=== PATIENT | male | born 1990 | race Caucasian/White ===

== ENCOUNTER 2021-05-09 05:52 | Emergency (ER) | payer SELFPAY ==
[~2021-05-09] VITALS: Ht 175.3 cm; Wt 86.2 kg
--- NOTE | 2021-05-09 05:56 | NUR ---
PT AAOX4. BIBSELF C/O PAIN UPON URINATION AFTER USING A PUBLIC BATHROOM. PLACED IN BED 4 ON MONITOR AND PULSE OX. AWAITING ER MD FOR EVAL AND ORDERS.
--- NOTE | 2021-05-09 06:01 | NUR ---
URINE COLLECTED, SENT TO LAB.
[2021-05-09] MEDS ORDERED: CLOT12CR TP ×2 (06:17→06:18)
[2021-05-09] MEDS ORDERED: DOXY-326 PO (06:18)
[2021-05-09] MEDS ORDERED: CEFTRIAXONE 500 MG VIAL IM ONE (06:30)
--- NOTE | 2021-05-09 06:40 | NUR ---
SPOKE TO LAB REGARDING URINE. WILL COLLECT.
[2021-05-09] MEDS ORDERED: LIDOCAINE /MPF 1% VIAL 5 ML VIAL ONE (06:41)
[2021-05-09] MEDS ORDERED: CEFTRIAXONE 500 MG VIAL ONE (06:41)
--- NOTE | 2021-05-09 06:49 | NUR ---
Patient discharged to home in stable condition. Written and verbal after care instructions given. Patient verbalizes understanding of instruction and RX. Pt ambulated with steady gait. vss.
[2021-05-09 06:50] VITALS: BP 135/76
[2021-05-09 06:55] LABS: BILIRUBIN,URINE NEGATIVE (NEGATIVE); LEUKOCYTE ESTERASE ,URINE NEGATIVE (NEGATIVE); NITRITE, URINE NEGATIVE (NEGATIVE); PROTEIN,URINE NEGATIVE (NEGATIVE); UGLUCOSE NEGATIVE (NEGATIVE); UROBILINOGEN,URINE 0.2 EU/dL (0.2)
[2021-05-09 07:08] LABS: COLOR,URINE STRAW (YELLOW)
[2021-05-09 07:19] LABS: BACTERIA,URINE None seen /HPF (None Seen); SQUAMOUS EPITHELIAL CELL,UR None Seen /HPF (None Seen); WBC,URINE 0-2 /HPF (0-3)
== END 2021-05-09 06:50 | disposition home or self-care (01) ==
LOC: ER 05:52
DX: N34.2 Other urethritis (principal); B35.9 Dermatophytosis, unspecified
CPT/HCPCS: 81001; 87491; 87591; 96372; 99283; J0696; J3490